=== PATIENT | female | born 1975 ===

== ENCOUNTER 2019-08-26 04:42 | Day surgery (SDC) | payer SELFPAY ==
[~2019-08-26] VITALS: Ht 160 cm; Wt 71.2 kg
[2019-08-26] VITALS (9 sets, daily range): BP systolic 124–137; BP diastolic 69–79; PULSE 75–97; TEMP 97.6–98.8
--- NOTE | 2019-08-26 08:00 | NUR ---
PATIENT IS A&O. VSS. PATIENT IS PRIMARILY [place] SPEAKING HOWEVER, UNDERSTANDS [place]AN[place] WELL. C/O MOD TO SEVERE RIGHT FLANK PAIN. 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 PATIENT SCHEDULED FOR OR LATER THIS AM. NPO. CONSENT ON CHART. STRAINING URINE. HEAD TO TOE ASSESSMENT WNL. NO C/O N/V. IV FLUIDS INFUSING INTO RIGHT AC IV. NO OTHER NEEDS. CALL LIGHT IN REACH.
--- NOTE | 2019-08-26 09:30 | NUR ---
ASSISTED PATIENT TO BATHROOM. PATIENT NOW RESTING IN BED. FLUIDS INFUSING PER ORDERS. NO FURTHER NEEDS AT THIS TIME.
--- NOTE | 2019-08-26 09:45 | NUR ---
PATIENT DOWN TO OR BY BED. CONSENT FORM SIGNED AND PATIENT REPORTS NO FURTHER QUESTIONS REGARDING SURGERY.
--- NOTE | 2019-08-26 12:10 | NUR ---
PATIENT BACK IN ROOM FROM [place] W/ RIGHT STENT PLACEMENT. ORIENTED BUT DROWSY. VSS. DENIES PAIN. PATIENT REPORTS SHE NEEDS TO VOID, ASSISTED TO BATHROOM. PATIENT VOIDED APPROX 50CC OF PINK COLORED URINE WITH TWO SMALL KIDNEY STONE PARTICLES NOTED POST OP. PATIENT REPORTS SOME BURING WITH URINATION. IV FLUIDS INFUSING INTO RIGHT AC IV. LIQUIDS AT BEDSIDE. NO C/O N/V. LUNCH TRAY ORDERED. HEAD TO TOE WNL. PATIENT TO DISCHARGE HOME TODAY WHEN CRITERIA MEET.
--- NOTE | 2019-08-26 14:30 | NUR ---
DC'd IV per orders. VSS and patient is resting in bed. Will continue to monitor.
--- NOTE | 2019-08-26 14:55 | NUR ---
PATIENT INDEPENDENT IN ROOM POST OP. VSS. VOIDED MULTIPLE TIMES. PATIENT ONLY COMPLAINT IS FREQUENCY. NO C/O N/V. PATIENT ASKING ABOUT DISCHARGE, CALLING HER RIDE
--- NOTE | 2019-08-26 14:57 | NUR ---
PRATIBHA met with the patient to discuss discharge plan. The patient lives alone in [place]. She states that her daughter, Lydia (ph#[phone]), also lives in [place]. She reports independence with ADLs and does not have any DME. The patient does not have a PCP. She states that she has a list of providers in [place] that she would like to look over. She receives her medications at [facility] in [place] and she reports no difficulties obtaining her meds. The patient states that her next of kin is her daughter, Lydia. The patient plans to return home upon discharge. No additional needs at this time.
--- NOTE | 2019-08-26 16:12 | NUR ---
PATIENT HAS MEET DISCHARGE CRITERIA AND PATIENT'S RIDE IS HERE. GAVE DISCHARGE INSTRUCTIONS & PRESCRIPTION. STUDENT NURSE DC'D IV SITE, COVERED WITH GAUZE & BANDAID. SENT PERSONAL BELONGINGS. PATIENT DISCHARGED.
== END 2019-08-26 16:12 | disposition home or self-care (01) ==
LOC: SURG 04:42 → SDCO 04:42 → MEDICAL 04:42 → EDSTATUS 10:30 → SDCO 16:12 → SURG 16:12
DX: N20.1 Calculus of ureter (principal); Z88.0 Allergy status to penicillin; Z88.8 Allergy status to other drugs, medicaments and biological substances; K21.9 Gastro-esophageal reflux disease without esophagitis; K44.9 Diaphragmatic hernia without obstruction or gangrene
CPT/HCPCS: C1769; C2617; G0378; G0379; J0690; J1100; J2270; J2405; J2704; J3010; J7030; Q9967